=== PATIENT | male | born 1960 | race Caucasian/White ===

== ENCOUNTER → 2017-06-19 | Emergency (ER) | payer OTHER ==
[~2017-06-19] VITALS: Ht 170.2 cm; Wt 77.1 kg
[~2017-06-19] MED LIST: BYDUREON2 MG SQ; CLEOCIN HCL300 MG PO; COZAAR25 MG PO; CRESTOR40 MG PO; HYDROCHLOROTH12.5 MG PO; KETO10TA2 PO; METFORMIN HCL1000 M2 PO; NORVASC5 MG PO; PLAVIX75 MG PO; TOPROL XL100 MG PO; TRICOR145 MG PO
== END ==
LOC: ER 03:39
DX: K04.7 Periapical abscess without sinus (principal)